=== PATIENT | male | born 1940 | race Two or more races ===

== ENCOUNTER 2019-05-09 10:13 | Emergency (ER) | payer OTHER ==
--- NOTE | 2019-05-09 11:04 | EDPHYS ---
Physician Documentation [facility] Name: Izaiah Brooks Age: 78 yrs Sex: Male : 1940 Arrival Date: 05/09/2019 Time: 10:15 Bed 23 Private MD: ED Physician Prince Lima HPI: 05/08 10:37 This 78 yrs old Male presents to ER via Ambulatory with complaints of Drainage From Ear.jmm 10:37 The patient presents with drainage, that is bloody. Onset: The symptoms/episode jmm began/occurred acutely, yesterday. Modifying factors: The symptoms are alleviated by nothing, the symptoms are aggravated by nothing. This is a 78 year old male with no chronic medical conditions that presents to the ED with complaints of bleeding from his right ear. Patient stated yesterday the volume increased in his right ear. Patient states when taking the hearing aid out, later that evening, noticing clots in his right ear canal and attached to the hearing aid. Patient states having a small amount of blood drainage since. Patient denies cough, congestion, fever. . Historical: - Allergies: 10:35 No Known Allergies; iw - Home Meds: 10:35 Vitamin C Oral daily [Active]; Vitamin D Oral daily [Active]; aspirin 81 mg Oral TbEC 1 iw tab once daily [Active]; glucosamine-chondroitin oral oral daily [Active]; - PMHx: 10:36 None; iw - PSHx: 10:35 prostate; iw - Immunization history:: Adult Immunizations up to date. - Social history:: Smoking status: Patient denies any tobacco usage or history of. ROS: 10:37 Constitutional: Negative for fever, chills, and weight loss. jmm 10:37 Cardiovascular: Negative for chest pain, palpitations, and edema, Respiratory: Negative for shortness of breath, cough, wheezing, and pleuritic chest pain, Neuro: Negative for headache, weakness, numbness, tingling, and seizure. 10:37 ENT: Positive for drainage from ear(s). 10:37 All other systems are negative. Exam: 10:37 Constitutional: This is a well developed, well nourished patient who is awake, alert, jmm and in no acute distress. Head/Face: atraumatic. Eyes: EOMI, no conjunctival erythema appreciated 10:37 Neck: Trachea midline, Supple Chest/axilla: Normal chest wall appearance and motion. Cardiovascular: Regular rate and rhythm. No edema appreciated Respiratory: Normal respirations, no respiratory distress appreciated Abdomen/GI: Non distended, soft Back: Normal ROM Skin: General appearance color normal MS/ Extremity: Moves all extremities, no obvious deformities appreciated, no edema noted to the lower extremities Neuro: Awake and alert, normal gait Psych: Behavior is normal, Mood is normal, Patient is cooperative and pleasant 10:37 ENT: TM's: rupture, on the right. Vital Signs: 10:31 BP 145 / 99; Pulse 99; Resp 18 S; Temp 98.4; Pulse Ox 97% on R/A; Weight 57.15 kg; iw Height 5 ft. 2 in. (157.48 cm); Pain 0/10; 10:31 Body Mass Index 23.04 (57.15 kg, 157.48 cm) iw MDM: 10:37 Patient medically screened. [facility] 11:01 Data reviewed: vital signs, nurses notes. Counseling: I had a detailed discussion with chino the patient and/or guardian regarding: the historical points, exam findings, and any diagnostic results supporting the discharge/admit diagnosis, the need for outpatient follow up, to return to the emergency department if symptoms worsen or persist or if there are any questions or concerns that arise at home. ED course: TM perforation most likely cause of bleed. NO active bleeding appreciated. Patient is advised to follow up with ENT and d/c use of right hearing aid. Patient given strict return precautions. Patient understood and agrees with the plan of care. . Administered Medications: No medications were administered Disposition: 18:08 Co-signature as Attending Physician, Prince Lima MD I agree with the assessment and [facility] plan of care. Disposition: 05/09/19 11:04 Discharged to Home. Impression: Central perforation of tympanic membrane, right ear. - Condition is Stable. - Discharge Instructions: Eardrum Rupture, Adult. - Prescriptions for Augmentin 875- 125 mg Oral Tablet - take 1 tablet by ORAL route every 12 hours for 10 days; 20 tablet. - Medication Reconciliation Form, Thank You Letter, Antibiotic Education, Prescription Opioid Use form. - Follow up: Private Physician; When: 2 - 3 days; Reason: Recheck today's complaints, Continuance of care, Re-evaluation by your physician. Signatures: Anastasiya Hyde RN RN aj1 Prince Lima MD MD cha Mickail, Joel, PA PA jmm Williams, Irene, RN RN iw Corrections: (The following items were deleted from the chart) 11:12 11:04 05/09/2019 11:04 Discharged to Home. Impression: Central perforation of tympanic aj1 membrane, right ear. Condition is Stable. Forms are Medication Reconciliation Form, Thank You Letter, Antibiotic Education, Prescription Opioid Use. Follow up: Private Physician; When: 2 - 3 days; Reason: Recheck today's complaints, Continuance of care, Re-evaluation by your physician. chino
--- NOTE | 2019-05-09 11:04 | ER ---
Nurse's Notes [facility] Name: Izaiah Brooks Age: 78 yrs Sex: Male : 1940 Arrival Date: 05/09/2019 Time: 10:15 Bed 23 Private MD: Diagnosis: Central perforation of tympanic membrane, right ear Presentation: 05/08 10:31 Chief complaint: Patient states: yesterday was wearing his hearing aid and suddenly iw volume went up very high , last night he took hearing aid out and there was blood oozing from right ear. Coronavirus screen: The patient has NOT traveled to [place] in the past 14 days. Proceed with normal triage procedures. Ebola Screen: Patient negative for fever greater than or equal to 101.5 degrees Fahrenheit, and additional compatible Ebola Virus Disease symptoms Patient denies exposure to infectious person. Patient denies travel to an Ebola-affected area in the 21 days before illness onset. No symptoms or risks identified at this time. Initial Sepsis Screen: Does the patient meet any 2 criteria? No. Patient's initial sepsis screen is negative. Does the patient have a suspected source of infection? No. Patient's initial sepsis screen is negative. Risk Assessment: Do you want to hurt yourself or someone else? Patient reports no desire to harm self or others. 10:31 Acuity: PRABHU 4 iw 10:31 Method Of Arrival: Ambulatory iw Triage Assessment: 11:10 General: Appears in no apparent distress. comfortable, Behavior is calm, cooperative, aj1 appropriate for age. Historical: - Allergies: 10:35 No Known Allergies; iw - Home Meds: 10:35 Vitamin C Oral daily [Active]; Vitamin D Oral daily [Active]; aspirin 81 mg Oral TbEC 1 iw tab once daily [Active]; glucosamine-chondroitin oral oral daily [Active]; - PMHx: 10:36 None; iw - PSHx: 10:35 prostate; iw - Immunization history:: Adult Immunizations up to date. - Social history:: Smoking status: Patient denies any tobacco usage or history of. Screenin:10 Abuse screen: Denies threats or abuse. Denies injuries from another. Nutritional aj1 screening: No deficits noted. Tuberculosis screening: No symptoms or risk factors identified. Fall Risk None identified. Assessment: 11:10 General: Appears in no apparent distress. comfortable, Behavior is calm, cooperative, aj1 appropriate for age. Pain: Complains of pain in right ear. Neuro: Level of Consciousness is awake, alert, obeys commands, Oriented to person, place, time, situation. Cardiovascular: Patient's skin is warm and dry. Respiratory: Airway is patent Respiratory effort is even, unlabored, Respiratory pattern is regular, symmetrical. GI: No signs and/or symptoms were reported involving the gastrointestinal system. : No signs and/or symptoms were reported regarding the genitourinary system. EENT: Reports drainage from right ear. Derm: No signs and/or symptoms reported regarding the dermatologic system. Skin is pink, warm \T\ dry. normal. Musculoskeletal: No signs and/or symptoms reported regarding the musculoskeletal system. Circulation, motion, and sensation intact. Vital Signs: 10:31 BP 145 / 99; Pulse 99; Resp 18 S; Temp 98.4; Pulse Ox 97% on R/A; Weight 57.15 kg; iw Height 5 ft. 2 in. (157.48 cm); Pain 0/10; 10:31 Body Mass Index 23.04 (57.15 kg, 157.48 cm) ED Course: 10:15 Patient arrived in ED. as 10:33 Triage completed. iw 10:36 Sesar Carter PA is [facility] 10:36 Prince Lima MD is Attending Physician. [facility] 11:08 Anastasiya Hyde, RN is Primary Nurse. aj1 11:10 Patient has correct armband on for positive identification. Bed in low position. Call aj1 light in reach. Side rails up X 1. 11:10 No provider procedures requiring assistance completed. Patient did not have IV access aj1 during this emergency room visit. Administered Medications: No medications were administered Outcome: 11:04 Discharge ordered by . jmm 11:10 Discharged to home ambulatory. aj1 11:10 Condition: good 11:10 Discharge instructions given to patient, Instructed on discharge instructions, follow up and referral plans. medication usage, Demonstrated understanding of instructions, follow-up care, medications, Prescriptions given X 1. 11:12 Patient left the ED. aj1 Signatures: Anastasiya Hyde, RN RN [facility] Sesar Carter PA PA Mera Sandoval Irene, RN RN Corrections: (The following items were deleted from the chart) 10:35 10:31 BP 145 / ???; Pulse 99bpm; Resp 81bpm; Pulse Ox 97% RA; Temp 98.4F; 57.15 kg; iw Height 5 ft. 2 in.; BMI: 23.0; Pain 0/10; iw
[2019-05-09 11:23] VITALS: BP 145/99; TEMP 98.4; O2SAT 97
== END 2019-05-09 11:12 | disposition home or self-care (01) ==
LOC: ER 10:13
DX: H72.01 Central perforation of tympanic membrane, right ear (principal)
CPT/HCPCS: 99282

== ENCOUNTER 2022-05-01 06:20 | Day surgery (SDC) | payer OTHER ==
[2022-04-30 15:41] LABS: Absolute Lymphocytes (CBC) 1.7 K/uL (0.7-4.9); Hematocrit 36.7 % (39.6-49.0); Lymphocytes % 33.4 % (15.3-44.8); MCV 97.2 fL (80-100); MPV 7.6 fL (7.6-11.3); RBC Red Blood Cell Count 3.77 M/uL (4.33-5.43)
--- NOTE | 2022-04-30 18:18 | RAD REPORT ---
EXAM DESCRIPTION: Located within [facility] And Lat (2 Views)04/30/2022 3:25 pm CLINICAL HISTORY: pre op for surgery COMPARISON: CHEST PA AND LAT 2 VIEW dated 07/10/2010; CHEST PA AND LAT 2 VIEW dated 06/10/2010 TECHNIQUE: PA and lateral views of the chest. FINDINGS: The lungs are clear. No pneumothorax or effusion. The cardiomediastinal contours are unrem arkable. IMPRESSION: No acute cardiopulmonary process.
[2022-05-01] MEDS ORDERED: CEFAZOLIN SODIUM 1 GM/VIAL ONE (06:53)
[2022-05-01] MEDS ORDERED: propofoL 200 MG/20 ML VIAL IV ONE ×2 (07:00→07:34)
[2022-05-01] MEDS: Ringers Lactate 1,000 ML IV ONE ×2 (07:00→07:32)
[2022-05-01] MEDS ORDERED: ONDANSETRON 4 MG/2 ML VIAL ONE ×2 (07:00→08:07)
[2022-05-01] MEDS ORDERED: LIDOCAINE 2% MPF 5 ML VIAL ONE ×2 (07:00→07:34)
[2022-05-01] MEDS ORDERED: FENTANYL CITR 100 MCG/2 ML ONE ×2 (07:00→08:12)
[2022-05-01] MEDS ORDERED: ROCURONIUM 50 MG/5 ML VIAL IV ONE ×2 (07:00→07:34)
[2022-05-01] MEDS ORDERED: BUPIVACAINE 0.5% PF 10 ML VIAL ONE (07:06)
[2022-05-01] MEDS ORDERED: GLYCOPYRROLATE 0.2 MG/ML SYR ONE ×2 (07:56→08:49)
[2022-05-01] MEDS ORDERED: KETOROLAC 30 MG/ML INJ ONE (07:56)
[2022-05-01] MEDS ORDERED: dexAMETHasone 10 MG/ML VIAL ONE (07:56)
[2022-05-01] MEDS ORDERED: Phenylephrine HCl 10 MG/ML 1 ML VIAL ONE (08:08)
[2022-05-01] MEDS ORDERED: NS 0.9% VIAL 10 ML ONE (08:26)
[2022-05-01] MEDS ORDERED: NEOSTIGMINE 1 MG/ML -10 ML VIAL ONE (08:49)
--- NOTE | 2022-05-01 08:55 | P.OP ---
Date of Service: 05/01/22 Preop diagnosis: Right inguinal hernia Postop diagnosis: Same Procedure performed: Repair of right inguinal hernia Surgeon: Karlo Killian MD [employer] Integration Developer: TORI Lu Estimated blood loss: Minimal Specimen: Hernia sac and cord lipoma Findings: As above Anesthesia: General Complications: None Drains: None Fluids and blood products: Nonapplicable Disposition: Recovery room Operative note: Patient brought to the OR and placed in supine position. General anesthesia begun. Patient prepped and draped in usual sterile fashion. Marcaine 0.5% infiltrated in a field block fashion in the right groin region. 4 cm oblique incision made between the right pubic tubercle and the anterior iliac superior spine. Subcutaneous tissue divided. Bleeding controlled with cautery. Rafael's fascia identified and divided. Aponeurosis of the external abdominal oblique identified. Aponeurosis mobilized inferiorly to expose the shelving edge. The aponeurosis opened through the external ring. Ilioinguinal nerve was identified and retracted away from the field of dissection. Cord structures identified and skeletonized. Cord lipoma and indirect sac identified the indirect sac excised at the base with 2-0 Prolene suture ligature and freehand tie after it was dissected away from the cord structures. Cord lipoma was excised at the base with 2-0 chromic tie. Both structures were sent to pathology. Cord structures and ilioinguinal nerve placed back in anatomic location after the mesh was placed. Marlex mesh was placed in the internal ring and secured with VersaTack stapler. And an onlay mesh was placed on the inguinal floor secured medially to the pubic tubercle, inferiorly to the shelving edge, superior to the conjoined tendon and laterally to each other. Cord structures and ilioinguinal nerve placed back in anatomic location. Then 2-0 Prolene was used to close the aponeurosis. 2-0 chromic used to reapprox imate the Rafael's fascia. Subcutaneous wound irrigated with controlled cautery and then 3-0 chromic used approximate subcutaneous tissue and close skin. Sterile dressing applied. Patient awakened and taken to recovery room in good general condition. CC: Dr. Luong's office
[2022-05-01] MEDS ORDERED: HYDROCODONE/APAP 7.5/325 MG TAB PO PRN (08:56)
[2022-05-01 09:35] VITALS: TEMP 97.2
[2022-05-01] MEDS ORDERED: HYDROCODONE/APAP 7.5/325 MG TAB ONE (10:36)
[2022-05-01 11:49] VITALS: BP 157/66; O2SAT 95
--- NOTE | 2022-05-01 15:23 | EKG ---
Test Date: 2022-04-30 Test Time: 14:58:25 Nuclear Equipment Test Engineer: SANDEEP MEASUREMENT RESULTS: Intervals: Rate: 53 [place]: 176 QRSD: 88 QT: 412 QTc: 386 [place]: P: 28 [place]: 176 QRS: 73 T: 53 INTERPRETIVE STATEMENTS: Sinus bradycardia Otherwise normal ECG No previous ECG available for comparison Electronically Signed On 05-01-22 15:20:07 PUBLIC HEALTH INSPECTOR by Nolan Morrison
== END 2022-05-01 10:55 | disposition home or self-care (01) ==
LOC: OR 06:20
PROVIDERS: ATTEND Surgery
PROC: 0YU50JZ Supplement Right Inguinal Region with Synthetic Substitute, Open Approach (ICD-10-PCS; principal; 2022-05-01 07:30)
DX: K40.90 Unilateral inguinal hernia, without obstruction or gangrene, not specified as recurrent (principal)
CPT/HCPCS: 93005; 85025; 80048; 36415; 88302; 71046; 49505; J2704; J2710; J2370; J2001; J3010; J1100; A4216; J7120; J2405; J0690